=== PATIENT | male | born 1970 | race Caucasian/White ===

== ENCOUNTER 2018-08-21 21:10 | Emergency (ER) | payer BC, OTHER ==
[2018-08-21 21:24] LABS: BASO % 0.4 % (0-6); EOS % 2.8 % (0-6); GRAN % 48.6 % (47-80); HEMOGLOBIN 13.7 gm/dl (14.0-18.0); LYMPH % 35.2 % (16-45); MEAN CELL VOLUME 91.5 fl (81-97); MEAN CORPUSCULAR HGB CONC 34.3 g/dl (32-36); MEAN PLATELET VOLUME 8.7 fl (7.4-10.4); PLATELET COUNT 230 K/uL (130-400); RED BLOOD COUNT 4.37 M/uL (4.40-5.70); RED CELL DISTRIBUTION WIDTH 12.3 % (11.5-14.5); WHITE BLOOD COUNT W/O DIFF 5.4 K/uL (4.2-12.2)
[2018-08-21 21:27] LABS: MEAN CORPUSCULAR HEMOGLOBIN 31.3 pg (27-33)
--- NOTE | 2018-08-21 21:33 | Emergency Department Record ---
History of Present Illness - General Chief complaint: Vomiting Stated complaint: VOMITING,DIZZY Time Seen by Provider: 08/21/18 21:14 Source: Patient Mode of Arrival: Ambulatory Limitations: No limitations - History of Present Illness Initial comments: pt has been having frequent bouts of vomiting for the last 2 wks vomiting up to 20 times in an hour. he had some confusion and felt off balance yesterday and the night before. pt has been having bouts of dizziness also MD complaint: Nausea, Vomiting -: Week(s) Consistency: Intermittent Associated Symptoms: Weakness, Other - Related Data Home Medications Medication Instructions Recorded Confirmed Last Taken Atenolol [Tenormin] 50 mg PO DAILY 08/21/18 08/21/18 08/21/18 Finasteride [Proscar] 5 mg PO DAILY 08/21/18 08/21/18 08/21/18 Omeprazole [Prilosec] 20 mg PO DAILY 08/21/18 08/21/18 Unknown Ondansetron [Zofran Odt] 4 mg PO Q8H 08/21/18 08/21/18 Unknown Rosuvastatin Calcium 10 mg PO DAILY 08/21/18 08/21/18 Unknown Zolpidem Tartrate 5 mg PO QHS PRN 08/21/18 08/21/18 Unknown Allergies Allergy/AdvReac Type Severity Reaction Status Date / Time No Known Drug Allergies Allergy Verified 08/21/18 21:20 Medical Decision Making - Lab Data Result diagrams: 08/21/18 21:17 08/21/18 21:17 Lab Results 08/21/18 Range/Units 21:17 WBC 5.4 (4.2-12.2) K/uL RBC 4.37 L (4.40-5.70) M/uL Hgb 13.7 L (14.0-18.0) gm/dl Hct 40.0 L (42.0-52.0) % MCV 91.5 (81-97) fl MCH 31.3 (27-33) pg MCHC 34.3 (32-36) g/dl RDW 12.3 (11.5-14.5) % Plt Count 230 (130-400) K/uL MPV 8.7 (7.4-10.4) fl Gran % 48.6 (47-80) % Lymphocytes % 35.2 (16-45) % Monocytes % 13.0 H (0-9) % Eosinophils % 2.8 (0-6) % Basophils % 0.4 (0-6) % Disposition Disposition: Discharge Clinical Impression: Dizziness Vomiting Qualifiers: Vomiting type: unspecified Vomiting Intractability: non-intractable Nausea presence: with nausea Qualified Code(s): R11.2 - Nausea with vomiting, unspecified Disposition: Home, Self-Care Condition: (1) Good Instructions: Acute Nausea and Vomiting (ED), Dizziness (ED) Additional Instructions: follow up with family doctor. return sooner if worse. Forms: Patient Portal Access Quality - Quality Measures Quality Measures: N/A - Blood Pressure Screening Does Patient Have Any of the Following: Active Dx of HTN Blood Pressure Classification: Hypertensive Reading Systolic Measurement: 146 Diastolic Measurement: 91 Screening for High Blood Pressure: Patient Exclusion, Hx of HTN [[id number]]
[2018-08-21 21:48] LABS: PROSTATE SPECIFIC ANTIGEN SCR 0.27 ng/mL (0.0-2.0)
[2018-08-21 21:53] LABS: BLOOD UREA NITROGEN 13 mg/dL (6-20); CREATININE 1.1 mg/dL (0.7-1.2); EST GLOMERULAR FILTRATION RATE > 60 mL/min
[2018-08-21 21:54] LABS: TOTAL PROTEIN 7.5 g/dL (6.6-8.7)
[2018-08-21 21:56] LABS: GLUCOSE,RANDOM 106 mg/dL (74-109)
[2018-08-21 21:59] LABS: ALB/GLOB RATIO 1.5 (1.1-1.8); ALBUMIN 4.5 g/dL (4.0-5.0); ALKALINE PHOSPHATASE 93 U/L (40-129); ALT/SGPT 58 U/L (<41); AST/SGOT 27 U/L (10.0-50.0); LIPASE 46 U/L (13-60)
--- NOTE | 2018-08-22 21:28 | CT SCAN REPORT ---
EXAM: CT SCAN HEAD WO CONTRAST HISTORY: CONFUSION AND PROJECTILE VOMITING. TECHNIQUE: Axial CT scan of the head performed without IV contrast. COMPARISON: None. FINDINGS: No definite acute intracranial hemorrhage identified. No focal mass effect or midline shift apparent. No definite acute infarct or intracranial mass lesion seen. No depressed calvarial fracture evident. IMPRESSION: EMERGENCY NONCONTRAST HEAD CT APPEARS NEGATIVE WITH NO DEFINITE ACUTE INTRACRANIAL HEMORRHAGE OR FOCAL MASS EFFECT IDENTIFIED. JOB NUMBER: [id number] MTDD
== END 2018-08-21 22:24 | disposition home or self-care (01) ==
LOC: ER 21:10
DX: R42 Dizziness and giddiness (principal); R11.2 Nausea with vomiting, unspecified; R53.1 Weakness
CPT/HCPCS: 99283; 99284; 83690; 85025; 80053; 70450; G0103